=== PATIENT | male | born 1950 | race Caucasian/White ===

== ENCOUNTER → 2022-10-15 | Outpatient (CLI) | payer MEDICARE, BC ==
[~2022-10-15] MED LIST: ATORVASTATIN CA10 MG PO; CYCLOBENZAPRINE10 MG PO; LEVOXYL137 MCG PO
== END ==
LOC: RAD 12:01
PROVIDERS: ATTEND Family Medicine
DX: M54.50 Low back pain, unspecified (principal)
CPT/HCPCS: 72100

== ENCOUNTER → 2025-01-13 | Day surgery (SDC) | payer MEDICARE, BC ==
[2025-01-05 09:15] LABS: BASOPHILS # (AUTO) 0.1 (0.0-0.1); BASOPHILS % 0.9 % (0.0-1.0); EOSINOPHILS # (AUTO) 0.3 (0.0-0.4); EOSINOPHILS % 3.4 % (0.0-6.0); HEMATOCRIT 44.5 % (38.2-49.6); HEMOGLOBIN 14.7 g/dL (14.0-18.0); LYMPHOCYTES # (AUTO) 1.9 (1.0-3.2); LYMPHOCYTES % 26.2 % (18.0-39.1); MEAN CORPUSCULAR HEMOGLOBIN 31.1 pg (28-32); MEAN CORPUSCULAR VOLUME 94.3 fL (81-99); MONOCYTES # (AUTO) 0.6 (0.2-0.8); MONOCYTES % 8.5 % (4.4-11.3); NEUTROPHILS # (AUTO) 4.5 (2.1-6.9); NEUTROPHILS % 60.7 % (38.7-80.0); PLATELET COUNT 221 x10e3/uL (140-360); RED BLOOD COUNT 4.72 x10e6/uL (4.3-5.7); WHITE BLOOD COUNT 7.37 x10e3/uL (4.8-10.8)
[~2025-01-13] MED LIST changes: +ASPIRIN81 MG PO; +HYOSCYAMINE SULFATE 0.5 MG/ML INJ ONE; +LIDOCAINE HCL 2% LOCAL INJ 5 ML SDV VIAL INJ ONE; +LISINOPRIL10 MG PO; +PROPOFOL IV EMULSION 10 MG/ML 20 ML VIAL ONE; +ZOLPIDEM TARTRAT5 MG PO
[2025-01-13] MEDS: LACTATED RINGER'S 1,000 ML BAG IV ONE (11:45)
[2025-01-13 14:03] VITALS: TEMP 97.5
[2025-01-13 14:15] VITALS: BP 99/76; PULSE 90; RESP 15; O2SAT 98
== END | disposition home or self-care (01) ==
LOC: OR 11:20
PROVIDERS: ATTEND Internal Medicine Gastroenterology
DX: Z09 Encounter for follow-up examination after completed treatment for conditions other than malignant neoplasm (principal); D12.3 Benign neoplasm of transverse colon; Z98.0 Intestinal bypass and anastomosis status; K64.8 Other hemorrhoids; Z87.19 Personal history of other diseases of the digestive system; I10 Essential (primary) hypertension; E78.5 Hyperlipidemia, unspecified; E03.9 Hypothyroidism, unspecified; G47.00 Insomnia, unspecified; M54.2 Cervicalgia; M54.9 Dorsalgia, unspecified; Z88.1 Allergy status to other antibiotic agents; Z01.810 Encounter for preprocedural cardiovascular examination; Z01.812 Encounter for preprocedural laboratory examination; Z68.29 Body mass index [BMI] 29.0-29.9, adult; Z71.3 Dietary counseling and surveillance; Z79.82 Long term (current) use of aspirin; Z79.899 Other long term (current) drug therapy
CPT/HCPCS: 36415; 45385; 85025; 88305; 93005; J1980; J2003; J2704; J7121; 45378